=== PATIENT | male | born 1965 | race Caucasian/White ===

== ENCOUNTER 2018-06-03 14:56 | Observation (INO) | payer BC ==
[~2018-06-03 14:56] MED LIST: DESFLURANE 15 MIN; ROCURONIUM 50 MG INJ
[2018-06-03] MEDS ORDERED: DEXAMETHASONE 4 MG/ML 1 ML INJ (17:37)
[2018-06-03] MEDS ORDERED: CEFAZOLIN 1 GM INJ (17:37)
[2018-06-03] MEDS ORDERED: GLYCOPYRROLATE 0.4 MG INJ (17:37)
[2018-06-03] MEDS ORDERED: ROPIVACAINE 0.5 % 30 ML VIAL (17:37)
[2018-06-03] MEDS ORDERED: MIDAZOLAM 1 MG/ML 2 ML INJ (17:37)
[2018-06-03] MEDS ORDERED: FENTAnyl 50 MCG/ML VIAL (17:37)
[2018-06-03] MEDS ORDERED: PROPOFOL 20 ML (17:37)
[2018-06-03] MEDS ORDERED: ONDANSETRON 4 MG INJ (17:37)
[2018-06-03] MEDS ORDERED: NEOSTIGMINE 3 MG/3 ML SYRINGE (17:37)
[2018-06-03] MEDS ORDERED: ROCURONIUM 50 MG INJ (17:37)
[2018-06-03] MEDS ORDERED: IPRATROPIUM (NEB) 0.5 MG/2.5 ML AMP HHN (18:30)
[2018-06-03] MEDS ORDERED: DIPHENHYDRAMINE 50 MG INJ IV (18:30)
[2018-06-03] MEDS ORDERED: TRIMETHOBENZAMIDE 100 MG/ML VIAL IM (18:30)
[2018-06-03] MEDS ORDERED: MIDAZOLAM 1 MG/ML 2 ML INJ IV (18:30)
[2018-06-03] MEDS ORDERED: OXYCODONE/ACETAMINOPHEN (5/325) TAB PO ×2 (18:30)
[2018-06-03] MEDS ORDERED: ONDANSETRON 4 MG INJ IV (18:30)
[2018-06-03] MEDS ORDERED: HYDROmorphONE 1 MG/5 ML IV SYRINGE IV ×3 (18:30)
[2018-06-03] MEDS ORDERED: EPHEDrine SULFATE 50 MG/5 ML SYG IV (18:30)
[2018-06-03] MEDS ORDERED: ALBUTEROL 0.083% (NEB) 2.5 MG/3 ML AMP HHN (18:30)
[2018-06-03] MEDS ORDERED: hydrALAzine 20 MG INJ IV (18:30)
[2018-06-03] MEDS ORDERED: FENTAnyl 50 MCG/ML VIAL IV ×3 (18:30)
[2018-06-03] MEDS ORDERED: MEPERIDINE 25 MG INJ IV (18:30)
[2018-06-03] MEDS: ROPIVACAINE 0.5 % 30 ML VIAL (19:07)
[2018-06-03] MEDS: POLYMYXIN/BACITRACIN 1L IRRIG (19:09)
[2018-06-03] MEDS ORDERED: LABETALOL HCL 20MG INJ ×2 (19:31→22:28)
[2018-06-03] MEDS ORDERED: hydrALAzine 20 MG INJ (21:16)
[2018-06-03] MEDS: POLYMYXIN/BACITRACIN 1L IRRIG IRR ×2 (21:39→22:21)
[2018-06-03] MEDS ORDERED: KETOROLAC 30 MG INJ (21:46)
[2018-06-03] MEDS ORDERED: SUGAMMADEX SODIUM 200 MG/2 ML VIAL IV (21:47)
[2018-06-03] MEDS: POVIDONE IODINE 10% 28.4 GM OINT (21:55)
[2018-06-03] MEDS ORDERED: DIPHENHYDRAMINE 25 MG CAP PO (23:30)
[2018-06-03] MEDS ORDERED: CEFAZOLIN 1 GM/50 ML (PMX) 50 ML IVPB (23:30)
[2018-06-03] MEDS ORDERED: BISACODYL 10 MG SUPP PR (23:30)
[2018-06-04] MEDS: HYDROmorphONE 0.2 MG/ML PCA IV (00:01)
[2018-06-04] MEDS ORDERED: LABETALOL HCL 20MG INJ (00:19)
[2018-06-04] MEDS: LABETALOL HCL 20MG INJ IV (00:28)
[2018-06-04] MEDS: SOD CHLORIDE 0.9% 1,000 ML IV ×3 (00:58→19:22)
[2018-06-04] MEDS: CEFAZOLIN 1 GM/50 ML (PMX) 50 ML IVPB ×3 (01:35→18:04)
[2018-06-04] MEDS: SENNA/DOCUSATE NA (8.6MG/50MG) TAB PO ×2 (09:13→21:15)
[2018-06-04] MEDS: ONDANSETRON 4 MG INJ IV (09:18)
[2018-06-04] MEDS: OXYCODONE/ACETAMINOPHEN (5/325) TAB PO ×4 (11:17→23:41)
[2018-06-04] MEDS: morphine 10 MG INJ IV (12:33)
[2018-06-04] MEDS: RIVAROXABAN 10 MG TABLET PO (18:04)
[2018-06-05] MEDS: CEFAZOLIN 1 GM/50 ML (PMX) 50 ML IVPB ×2 (01:27→09:33)
[2018-06-05] MEDS: SOD CHLORIDE 0.9% 1,000 ML IV (01:30)
[2018-06-05] MEDS: OXYCODONE/ACETAMINOPHEN (5/325) TAB PO ×2 (03:37→07:43)
[2018-06-05] MEDS: HYDROmorphONE 0.2 MG/ML PCA IV (05:43)
[2018-06-05] MEDS: ONDANSETRON 4 MG INJ IV (08:15)
[2018-06-05] MEDS: SENNA/DOCUSATE NA (8.6MG/50MG) TAB PO (08:19)
[2018-06-05] MEDS ORDERED: MAGNESIUM HYDROXIDE 30ML CUP PO (21:00)
== END 2018-06-05 11:09 | disposition home or self-care (01) ==
LOC: SDS 06-04 02:07 → REC 06-04 02:16 → SDS 14:56 → MS1 06-04 02:17 → REC 06-04 02:17 → SDS 06-04 02:07 → MS1 23:27
DX: S82.852A Displaced trimalleolar fracture of left lower leg, initial encounter for closed fracture (principal); S92.142A Displaced dome fracture of left talus, initial encounter for closed fracture; M24.072 Loose body in left ankle; S90.02XA Contusion of left ankle, initial encounter; S94.22XA Injury of deep peroneal nerve at ankle and foot level, left leg, initial encounter; M94.272 Chondromalacia, left ankle and joints of left foot; W19.XXXA Unspecified fall, initial encounter
CPT/HCPCS: 27822; 71045; 73610; 97116; 97161